=== PATIENT | male | born 1965 | race Caucasian/White ===

== ENCOUNTER 2020-10-28 17:23 | Observation (INO) ==
[2020-10-28] MEDS ORDERED: MORPHINE SULFATE 4 MG/ML SYRG IV ONE (17:39)
[2020-10-28] MEDS: NORMAL SALINE 1,000 ML IV PRN (17:54)
--- NOTE | 2020-10-28 18:14 | ERNOTE ---
Integumentary HPI - Narrative Date of Service: 10/28/20 - General Presenting Symptoms: abscess Time Seen by Provider: 10/28/20 17:26 Source: patient Exam Limitations: no limitations - Immun/Allergies/Home Medications Immunizations: IMMUNIZATION HX Immunizations Up to Date No History of Influenza Vaccine No Hx Pneumococcal Vaccination No Allergies/Adverse Reactions: Allergies Allergy/AdvReac Type Severity Reaction Status Date / Time diphenhydramine Allergy Hives Verified 10/28/20 17:40 [From Benadryl] Home Medications: HOME MEDICATIONS Ibuprofen 800 mg PO prn PRN 10/28/20 [Last Taken Unknown] - Pain Pain Score: 9 - History of Present Illness Narrative: The patient is a 55 year old male who presents via POV for right groin abscess which has been present for 3 days. There are associated symptoms of pain, chills and fatigue. The patient reports pain to right groin and pubis, 9/10. There are no alleviating factors. There are aggravating factors of position and pressure to area. Previous treatments have included: none. The past medical history includes: pre-diabetes. The social history is positive for current tobacco use. The patient has had no known ill contacts. Patient states that he had a small pustule for over a week to right groin. Patient states that 3-4 days ago he decided "to get aggressive with it" and attempt to "pop" area. Patient states that he wasn't able to get return of drainage and then area began to get larger over the past few days with increased pain. Review of Systems - Review of Systems Constitutional: Present: chills, fatigue. Absent: fever EYE: Present: no symptoms reported ENT: Present: no symptoms reported. Absent: ear pain, nasal drainage, sore throat Respiratory: Present: no symptoms reported. Absent: shortness of breath, cough Cardiology: Present: no symptoms reported. Absent: chest pain Gastrointestinal/Abdominal: Present: abdominal pain. Absent: nausea, vomiting, diarrhea Genitourinary: Present: other - swelling and pain with pustule to right groin and pubis. Absent: dysuria, decreased urinary output, discharge Musculoskeletal: Present: no symptoms reported Skin: Present: lesions All Other Systems: All systems neg except as marked Medical History (Last Reviewed 10/28/20 @ 18:06 by KOKO Harrell) Pre-diabetes Surgical History: Surgical History (Last Reviewed 10/28/20 @ 18:06 by KOKO Harrell) Amputation toe Family History: Family History (Last Reviewed 10/28/20 @ 18:06 by KOKO Harrell) Other No pertinent family history Social History: (Last Reviewed 10/28/20 @ 18:06 by KOKO Harrell) Tobacco: Smoking Status: Current every day smoker Smoking cigarettes per day: 40 Alcohol: alcohol intake: current alcohol intake frequency: a few times a week Substance Use: substance use type: does not use Physical Exam - Physical Exam General Appearance: Present: wd/wn, alert, moderate distress Head Exam: Present: normal inspection, no evidence of injury Eye Exam: Normal inspection: bilateral Neck: Present: normal inspection Respiratory: Present: no respiratory distress, normal breath sounds, no accessory muscle use, lungs clear Cardiovascular/Chest: Present: no murmur, tachycardia Gastrointestinal/Abdominal: Present: normal bowel sounds, nondistended, soft, no organomegaly, tenderness - suprapubic Male Genitals Exam: Present: normal genitalia, lesions - large abscess with pustule noted to right groin with indurated area extending to right pubic and slight erythema, scrotum tenderness (R), other - lymphadenopathy to right groin. Absent: scrotum tenderness (L), urethral discharge Extremity Exam: Present: no edema Neurological Exam: Present: alert, oriented, normal mood/affect, no motor/sensory deficits Skin Exam: Present: normal color, warm/dry Progress - Date and Time Seen: Date and Time: 10/28/20 19:32 Due to extension of induration to right pubis and scotum CT obtained to evaluate for extension of abscess. Review of CT results discussed with patient. Consult with to discuss plan of care. Agrees with plan for admission with IV antibiotic and states will consult with general surgery in am for consult. This plan was discussed with patient and verbalizes understanding. 10/28/20 19:45 CT noted 2.2cm abscess to right groin fold at base of scrotum. Needle aspiration of abscess, 2ml of purulent fluid removed from fluctuant area and sent for culture. Will start patient on Clindamycin pending culture results. 10/28/20 20:49 Discussed plan of care with patient and agrees with admission. Patient states that pain is improved after medication administration. Patient requesting Nicotine but can not tolerate patch due to adhesive allergy, no gum available. - Results and Orders Patient's Lab Results:: I have reviewed the patient's lab results. - Vital Signs Patient's Vital Signs:: I have reviewed the patient's vital signs. Vital Signs: Vital Signs 10/28/20 17:36 10/28/20 17:59 Temperature 36.7 C Pulse Rate 124 H 111 H Respiratory Rate 20 15 Blood Pressure 130/86 160/88 H O2 Sat by Pulse Oximetry 97 95 - CT/Ultrasound CT/Ultrasound Narrative: IMPRESSION:Cellulitis in the soft tissues of the right groin with a 2.2 cm in maximum dimension early abscess near the base of the scrotum at the junction of the right inguinal crease and right gluteal cleft inferior gluteal fold. Electronically signed by Seun Jacobo MD. - Progress/Reassessment Chief Complaint: Abscess Progress:: Improved Departure Clinical Impression: Abscess or cellulitis of groin - Departure Disposition: Still a patient Condition: Stable
[2020-10-28 18:20] LABS: Hematocrit 46.1 % (42.0-52.0); Hemoglobin 15.8 gm/dL (13.5-18.0); Mean Cell Volume 92.2 fl (78-100); Mean Corpuscular Hemoglobin 31.6 pg (27-31); Mean Corpuscular Hgb Conc 34.3 g/dl (32-36); Mean Platelet Volume 9.6 fl (8-11.3); Neutrophil # 16.7 K/mm3 (1.3-6.0); Neutrophil % 78.8 % (42-75.0); Platelet Count 209 K/mm3 (150-450); White Blood Count 21.2 K/mm3 (4.0-10.5)
[2020-10-28 18:33] LABS: Albumin * 3.4 gm/dl (3.4-5.0); Anion Gap 15.4 mmol/L (6.8-13.8); BUN/Creatinine Ratio 12.7 (9.0-21.6); Bilirubin, Total 1.3 mg/dL (0.0-1.1); Ca. Corrected For Albumin 9.1 mg/dL (8.4-10.2); Calcium * 8.9 mg/dL (7.9-10.9); Carbon Dioxide 22.2 mmol/L (24-32.6); Potassium 3.6 mmol/L (3.4-4.6); Total Protein 7.7 gm/dL (6.2-8.2)
[2020-10-28] MEDS ORDERED: HYDROmorphone HCL 1 MG/ML DISP.SYRIN IV ONE (18:50)
[2020-10-28] MEDS ORDERED: CLINDAMYCIN PHOSPHATE 600 MG in DEXTROSE 5 % IN WATER 100 ML IV ONE ×2 (19:27)
[2020-10-28] MEDS ORDERED: NORMAL SALINE 1,000 ML IV PRN (20:48)
[2020-10-28] MEDS: CLINDAMYCIN IN 0.9 % SOD CHLOR 600 MG/50 ML BAG IV SCH (21:22)
[2020-10-28] MEDS: HYDROmorphone HCL 1 MG/ML DISP.SYRIN IV PRN ×2 (21:47→23:53)
[2020-10-29] MEDS: HYDROmorphone HCL 1 MG/ML DISP.SYRIN IV PRN ×5 (01:53→13:34)
[2020-10-29] MEDS: CLINDAMYCIN IN 0.9 % SOD CHLOR 600 MG/50 ML BAG IV SCH ×2 (04:51→13:35)
[2020-10-29 06:49] LABS: Hematocrit 43.7 % (42.0-52.0); Hemoglobin 14.8 gm/dL (13.5-18.0); Mean Cell Volume 93.4 fl (78-100); Mean Corpuscular Hemoglobin 31.6 pg (27-31); Mean Corpuscular Hgb Conc 33.9 g/dl (32-36); Mean Platelet Volume 9.3 fl (8-11.3); Platelet Count 207 K/mm3 (150-450); Red Blood Count 4.68 M/mm3 (4.7-6.0); Red Cell Distribution Width 11.9 % (11.5-14.0); White Blood Count 20.4 K/mm3 (4.0-10.5)
[2020-10-29 06:51] LABS: Total Cells Counted 100
[2020-10-29 07:18] LABS: Atypical (Reactive) Lymph 2 % (0-2); Band 4 % (0-2.0); Eosinophil 1 % (0-3); Lymphocyte 11 % (20-51); Monocyte 8 % (0-9); Neutrophil 74 % (42-75); Neutrophil # 15.1 K/mm3 (1.3-6.0); Platelet Estimate Normal (NORMAL)
[2020-10-29 07:21] LABS: RBC Morphology Normal (NORMAL)
[2020-10-29] MEDS: INSULIN LISPRO 100 UNITS/ML VIAL SC SCH ×3 (07:43→18:11)
--- NOTE | 2020-10-29 08:59 | HP ---
Chief Complaint - Chief Complaint Date of Service: 10/29/20 Time of Service: 08:59 Chief Complaint: Abscess, cellulitis, groin pain History of Present Illness: 55-year-old male with a history of diabetes, currently untreated presented to the ER for right groin pain and abscess that started roughly 3 days ago. Patient states that he started having fever and chills yesterday which is why came to the ER. In ER he was found to have a white count of 21.2 with a left shift at 78.8. Lactic acid was normal. CHEM panel was fairly unremarkable aside from elevated sugar at 302 as well as a CRP of 19. The rest of his lab work was unremarkable. CT scan of his pelvis showed cellulitis in the soft tissue of his right groin with a 2.2 cm dimension early abscess in the base of the scrotum of the junction of the right inguinal crease and right gluteal cleft. Patient was admitted for IV antibiotics and surgical consult. Consult order placed by the ER. Patient was brought to the floor on clindamycin IV after receiving 1 bag of normal saline bolus prior to admission. Patient currently n.p.o. in case surgical procedure needed. Medical History (Last Reviewed 10/28/20 @ 18:06 by KOKO Harrell) Pre-diabetes Surgical History: Surgical History (Last Reviewed 10/28/20 @ 18:06 by KOKO Harrell) Amputation toe Family History: Family History (Last Reviewed 10/28/20 @ 18:06 by KOKO Harrell) Other No pertinent family history Social History: (Last Reviewed 10/28/20 @ 18:06 by KOKO Harrell) Tobacco: Smoking Status: Current every day smoker Smoking cigarettes per day: 40 Alcohol: alcohol intake: current alcohol intake frequency: a few times a week Substance Use: substance use type: does not use Review Of Systems (GEN) - Review of Systems Generalized/Overall Review: Present: Chills, Fever EENTM: Present: No Symptoms Reported Respiratory: Present: No Symptoms Reported Cardiac: Present: No Symptoms Reported Abdominal: Present: Nausea, Vomiting Genitourinary: Present: No Symptoms Reported Musculoskeletal: Present: No Symptoms Reported Neurological: Present: No Symptoms Reported Skin: Present: Lesions - right groin abscess with surrounding redness Endocrine: Absent: Increased Thirst Immunizations: IMMUNIZATION HX Immunizations Up to Date No History of Influenza Vaccine No Hx Pneumococcal Vaccination No Allergies/Adverse Reactions: Allergies Allergy/AdvReac Type Severity Reaction Status Date / Time diphenhydramine Allergy Hives Verified 10/28/20 17:40 [From Benadryl] Home Medications: HOME MEDICATIONS Ibuprofen 800 mg PO prn PRN 10/28/20 [Last Taken Unknown] Exam - Exam Vital Signs: Vital Signs - Last Taken Temp 37.3 C 10/29/20 06:40 Pulse 110 H 10/29/20 06:40 Resp 16 10/29/20 06:40 BP 182/93 H 10/29/20 06:45 Pulse Ox 95 10/29/20 06:40 Constitutional: Present: Alert, Oriented x3, Well developed, Mild distress - groin pain/infection ENT Exam: Present: hearing grossly normal. Absent: nasal congestion, nasal drainage Eye Exam: bilateral eye: normal inspection, EOMI Neck: Present: non-tender, supple Back Exam: Present: no CVA tenderness Respiratory: Present: lungs clear, normal breath sounds Cardiovascular/Chest: Present: no murmur, tachycardia Abdomen: Present: soft, nontender, nondistended Skin Exam: Present: other - 2 cm abscess right groin crease next to scrotum, surrounding cellulitic infection with induration Neurologic: Present: alert, normal mood/affect, oriented x 3 Appearance: Present: appropriate appearance, appropriate insight Eye contact: Present: cooperative, good eye contact Thoughts: Present: normal thought pattern, normal mood /affect Diagnostic Studies: Abnormal Lab Results 10/28/20 10/28/20 10/29/20 Range/Units 18:08 18:08 06:40 WBC 21.2 H 20.4 H (4.0-10.5) K/mm3 RBC 4.68 L (4.7-6.0) M/mm3 MCH 31.6 H 31.6 H (27-31) pg Immature Gran # (Auto) 0.09 H (0.000-0.0310) K/mm3 Neutrophils % 78.8 H (42-75.0) % Band Neuts % (Manual) 4 H (0-2.0) % Lymphocytes % 8.7 L (20-51) % Lymphocytes % (Manual) 11 L (20-51) % Monocytes % 10.3 H (0.0-9) % Neutrophils # 16.7 H (1.3-6.0) K/mm3 Neutrophils # (Manual) 15.1 H (1.3-6.0) K/mm3 Monocytes # 2.2 H (0.0-1.0) k/mm3 Monocytes # (Manual) 1.6 H (0.0-1.0) k/mm3 Carbon Dioxide 22.2 L (24-32.6) mmol/L Anion Gap 15.4 H (6.8-13.8) mmol/L Random Glucose 302 H (70-110) mg/dL Total Bilirubin 1.3 H (0.0-1.1) mg/dL C-Reactive Prot, Quant 19.0 H (0.0-0.9) mg/dL Microbiology 10/28/20 19:35 Abscess Culture - Preliminary Other - Right No Growth Laboratory Results WBC 20.4 K/mm3 (4.0-10.5) H 10/29/20 06:40 RBC 4.68 M/mm3 (4.7-6.0) L 10/29/20 06:40 Hgb 14.8 gm/dL (13.5-18.0) 10/29/20 06:40 Hct 43.7 % (42.0-52.0) 10/29/20 06:40 MCV 93.4 fl (78-100) 10/29/20 06:40 MCH 31.6 pg (27-31) H 10/29/20 06:40 MCHC 33.9 g/dl (32-36) 10/29/20 06:40 RDW 11.9 % (11.5-14.0) 10/29/20 06:40 Plt Count 207 K/mm3 (150-450) 10/29/20 06:40 MPV 9.3 fl (8-11.3) 10/29/20 06:40 Immature Gran % (Auto) [employer] 10/29/20 06:40 Immature Gran # (Auto) [employer] 10/29/20 06:40 Neutrophils % [employer] 10/29/20 06:40 Neutrophils % (Manual) 74 % (42-75) 10/29/20 06:40 Band Neuts % (Manual) 4 % (0-2.0) H 10/29/20 06:40 Lymphocytes % [employer] 10/29/20 06:40 Lymphocytes % (Manual) 11 % (20-51) L 10/29/20 06:40 Monocytes % [employer] 10/29/20 06:40 Monocytes % (Manual) 8 % (0-9) 10/29/20 06:40 Eosinophils % [employer] 10/29/20 06:40 Eosinophils % (Manual) 1 % (0-3) 10/29/20 06:40 Basophils % [employer] 10/29/20 06:40 Basophils % (Manual) Cancelled 10/28/20 18:08 Nucleated RBC % [employer] 10/29/20 06:40 Immature Granulocytes Cancelled 10/28/20 18:08 Neutrophils # [employer] 10/29/20 06:40 Neutrophils # (Manual) 15.1 K/mm3 (1.3-6.0) H 10/29/20 06:40 Lymphocytes # [employer] 10/29/20 06:40 Lymphocytes # (Manual) 2.2 k/mm3 (1.5-3.5) 10/29/20 06:40 Monocytes # [employer] 10/29/20 06:40 Monocytes # (Manual) 1.6 k/mm3 (0.0-1.0) H 10/29/20 06:40 Eosinophils # [employer] 10/29/20 06:40 Eosinophils # (Manual) 0.2 k/mm3 (0.0-0.7) 10/29/20 06:40 Basophils # (Manual) Cancelled 10/28/20 18:08 Absolute Basophils [employer] 10/29/20 06:40 Nucleated RBCs Cancelled 10/28/20 18:08 Differential Comment Cancelled 10/28/20 18:08 Hypersegmented Polys Cancelled 10/28/20 18:08 Atypic/Reactive Lymphs 2 % (0-2) 10/29/20 06:40 Smudge Cells Cancelled 10/28/20 18:08 Other Cell Type Cancelled 10/28/20 18:08 Toxic Granulation Cancelled 10/28/20 18:08 Toxic Vacuolation Cancelled 10/28/20 18:08 Dohle Bodies Cancelled 10/28/20 18:08 Platelet Estimate Normal (NORMAL) 10/29/20 06:40 Giant Platelets Cancelled 10/28/20 18:08 RBC Morphology Normal (NORMAL) 10/29/20 06:40 Polychromasia Cancelled 10/28/20 18:08 Hypochromasia Cancelled 10/28/20 18:08 Poikilocytosis Cancelled 10/28/20 18:08 Basophilic Stippling Cancelled 10/28/20 18:08 Anisocytosis Cancelled 10/28/20 18:08 Microcytosis Cancelled 10/28/20 18:08 Macrocytosis Cancelled 10/28/20 18:08 Spherocytes Cancelled 10/28/20 18:08 Sickle Cells Cancelled 10/28/20 18:08 Target Cells Cancelled 10/28/20 18:08 Tear Drop Cells Cancelled 10/28/20 18:08 Ovalocytes Cancelled 10/28/20 18:08 Stomatocytes Cancelled 10/28/20 18:08 Moran-Potosi Bodies Cancelled 10/28/20 18:08 Makenna Cells Cancelled 10/28/20 18:08 Elliptocytes Cancelled 10/28/20 18:08 Rouleaux Cancelled 10/28/20 18:08 Schistocytes Cancelled 10/28/20 18:08 Morphology Comment Cancelled 10/28/20 18:08 Sodium 132 mmol/L (132-142) 10/28/20 18:08 Plasma Sodium 135 mmol/L (130-142) 10/28/20 18:08 Potassium 3.6 mmol/L (3.4-4.6) 10/28/20 18:08 Chloride 98 mmol/L (97-106) 10/28/20 18:08 Carbon Dioxide 22.2 mmol/L (24-32.6) L 10/28/20 18:08 Anion Gap 15.4 mmol/L (6.8-13.8) H 10/28/20 18:08 BUN 15 mg/dL (6-23) 10/28/20 18:08 Creatinine 1.18 mg/dL (0.4-1.4) 10/28/20 18:08 Est GFR (Non-Af Amer) 68 mL/min (60-130) 10/28/20 18:08 BUN/Creatinine Ratio 12.7 (9.0-21.6) 10/28/20 18:08 Random Glucose 302 mg/dL (70-110) H 10/28/20 18:08 Lactic Acid, Venous 1.4 mmol/L (0.4-2.0) 10/28/20 18:08 Calcium 8.9 mg/dL (7.9-10.9) 10/28/20 18:08 Calcium Adj for Albumin 9.1 mg/dL (8.4-10.2) 10/28/20 18:08 Total Bilirubin 1.3 mg/dL (0.0-1.1) H 10/28/20 18:08 AST 11 U/L (0-48) 10/28/20 18:08 ALT 19 U/L (19-67) 10/28/20 18:08 Alkaline Phosphatase 89 U/L (50-170) 10/28/20 18:08 C-Reactive Prot, Quant 19.0 mg/dL (0.0-0.9) H 10/28/20 18:08 Total Protein 7.7 gm/dL (6.2-8.2) 10/28/20 18:08 Albumin 3.4 gm/dl (3.4-5.0) 10/28/20 18:08 SARS-CoV-2 (PCR) Not detected (NotDetected) 10/28/20 19:30 Assessment/Plan - Narrative Narrative: 55-year-old male admitted for right groin abscess, started on clindamycin IV. Patient's white count elevated from infection. Surgical consult placed by ER. Will continue IV antibiotics, patient is n.p.o. currently. Will reach out to general surgery as it is very available to discuss the case. Repeat CBC in the morning. Patient has low-dose hydromorphone ordered for pain control from the ER, will continue this. Patient blood sugar is elevated. Currently untreated diabetes. Will start sliding scale insulin and blood glucose monitoring before meals at bedtime. Tylenol ordered for fevers or discomfort. We will continue monitor vitals. SCDs to be worn while in bed for DVT prophylaxis. Nurse to call with questions or concerns. - Assessment/Plan (1) Abscess or cellulitis of groin Problem: Acute (2) Diabetes Problem: Acute (3) Elevated blood pressure reading without diagnosis of hypertension Problem: Acute
[2020-10-29] MEDS: NORMAL SALINE 1,000 ML IV PRN (10:57)
[2020-10-29] MEDS ORDERED: ACETAMINOPHEN 500 MG TABLET PO PRN (14:14)
[2020-10-29] MEDS ORDERED: hydrALAZINE HCL 10 MG TABLET PO ONE (14:45)
--- NOTE | 2020-10-29 16:33 | ANES ---
Anesthesia Pre Procedure Eval Vitals/Labs: Last Vital Signs Temp 38.3 C H 10/29/20 13:52 Pulse 100 10/29/20 14:35 Resp 26 H 10/29/20 13:52 BP 172/75 H 10/29/20 14:35 Pulse Ox 91 L 10/29/20 13:52 HOME MEDICATIONS Ibuprofen 800 mg PO prn PRN 10/28/20 [Last Taken Unknown] Allergies/Adverse Reactions: Allergies Allergy/AdvReac Type Severity Reaction Status Date / Time diphenhydramine Allergy Hives Verified 10/28/20 17:40 [From Benadryl] - Planned Procedure Planned Procedure: CELLULITIS AND ABSCESS TO R GROIN Medication List Reviewed:: Yes Allergies Verified: Yes Medical History (Last Reviewed 10/29/20 @ 16:29 by Arthur Garcia CRNA) Pre-diabetes Surgical History (Last Reviewed 10/29/20 @ 16:29 by Arthur Garcia CRNA) Amputation toe Family History (Last Reviewed 10/29/20 @ 16:29 by Arthur Garcia CRNA) Other No pertinent family history - Family Anesthesia History Family History:: no untoward family reactions to anesthesia, no familial bleeding tendencies, no family history of clotting disorders, no family history of premature - Airway/Neck/Teeth Within Normal Limits:: Yes Teeth Condition: missing, poor condition - upper molar loose Neck Exam: full range of motion Mallampatti Score: 2 Thyromental (T-M) distance: > 6 cm Mandibulo Hyoid distance: > 3 cm - Respiratory Respiratory Physical: decreased breath sounds, rhonchi Smoking Status: Current every day smoker Discussed smoking cessation including day of surgery: Yes - Last ciggarrette 2 days ago Sleep Apnea currently treated: No Sleep Apnea by current assessment: No - Cardiovascular Tolerate Activity: Fair Heart Sounds: S1 & S2, Regular - Gastrointestinal NPO since: 0 - Anesthesia Assessment and Plan ASA Class: PS, II Anesthesia Type Plan: General LMA
--- NOTE | 2020-10-29 16:37 | CONS ---
[facility] - General Date of Service: 10/29/20 Narrative: He presented to the emergency room last night with right groin swelling. He was found to have an elevated white blood cell count and CT scan evidence of an early abscess in the right groin. He was started on IV clindamycin Source: patient, RN/MD, RN notes reviewed Exam Limitations: no limitations - History of Present Illness Initial Comments: He states he has had "cysts" in the same area that he has always been "able to pop". This time however the area got "the size of a golf ball or baseball" and he tried to "get aggressive with it" but did not get any pus out. States the area hurts so bad that he cannot sit down to move his bowels or urinate. Usually he moves his bowels twice a day. He did go yesterday morning but has not moved his bowels since. Timing/Duration: other - Apparently this started 2 weeks ago Severity: moderate Modifying Factors - (Worsens): Reports: movement Modifying Factors - (Improves): Reports: immobilization Associated Symptoms: other - His main complaint is pain. Apparently no fever or chills Allergies/Adverse Reactions: Allergies diphenhydramine [From Benadryl] Allergy (Verified 10/28/20 17:40) Hives Home Medications: Home Medications Medication Instructions Recorded Last Taken Ibuprofen 800 mg PO prn PRN 10/28/20 Unknown Medications - Medications Current Medications: Current Medications Acetaminophen (Acetaminophen 500 Mg Tablet) 1,000 mg PO Q8H PRN PRN Reason: Mild pain (pain scale 1-3) Stop: 11/28/20 14:15 Last Admin: 10/29/20 14:35 Dose: 1,000 mg Documented by: Hydromorphone HCl (Hydromorphone Hcl 1 Mg/Ml Disp.Syrin) 0.5 mg IV Q2H PRN PRN Reason: Pain Stop: 11/27/20 20:49 Last Admin: 10/29/20 13:34 Dose: 0.5 mg Documented by: Clindamycin/Sodium Chloride (Cleocin) 600 mg in 50 mls @ 50 mls/hr IV Q8H DEANNA Stop: 11/27/20 21:01 Last Admin: 10/29/20 13:35 Dose: 50 mls/hr Documented by: Sodium Chloride (Sodium Chloride 0.9%) 1,000 mls @ 125 mls/hr IV .Q8H PRN PRN Reason: HYDRATION Stop: 11/27/20 20:49 Last Infusion: 10/29/20 11:10 Dose: Infused Documented by: Insulin Human Lispro (Insulin Lispro 100 Units/Ml Vial) 0 units SC GERA HUERTA; Protocol Stop: 11/28/20 07:01 Last Admin: 10/29/20 11:37 Dose: 4 units Documented by: Review of Systems - Review of Systems Generalized/Overall Review: Absent: Chills, Fever EENTM: Present: No Symptoms Reported Respiratory: Absent: Cough, Shortness of Breath Cardiac: Absent: Chest Pain, Palpitations Abdominal: Present: Other - He does not generally have problems with heartburn. And until recently his bowels were regular.. Absent: Nausea, Vomiting Genitourinary: Present: Nocturia - Generally gets up once or twice, Other - Pain and swelling in the right scrotum and the right groin. Absent: Burning Musculoskeletal: Present: No Symptoms Reported, Other - Absent right great toe from a lawnmower accident as a child Neurological: Present: No Symptoms Reported, Other - He specifically denies numbness in his feet Skin: Present: No Symptoms Reported Endocrine: Present: No Symptoms Reported Physical Examination - Exam Vital Signs: Vital Signs - Last Taken Temp 38.3 C H 10/29/20 13:52 Pulse 100 10/29/20 14:35 Resp 26 H 10/29/20 13:52 BP 172/75 H 10/29/20 14:35 Pulse Ox 91 L 10/29/20 13:52 O2 Oxygen Delivery Method Room Air Constitutional: Present: Alert, Oriented x3, Cooperative, Well developed, Well nourished, No distress - He complains of discomfort in the right groin however his attention is equally divided between watching the TV and my questions ENT Exam: Present: normal ENT inspection, other - Very poor dentition Neck: Present: full range of motion, normal inspection Respiratory: Present: lungs clear, no respiratory distress Cardiovascular/Chest: Present: regular rate, rhythm, no murmur, other - Very distant heart sounds Abdomen: Present: Normal bowel sounds, soft, nontender, other - There is induration in the right groin /Rectal: Present: Other - He has an abscess in the medial thigh at the groin crease Extremity: Present: normal range of motion, other - Absent right great toe Skin Exam: Present: normal color, warm/dry Neurologic: Present: healthcare specialist II-XII nml as tested, normal cerebellar test, alert, normal mood/affect Appearance: Present: no memory impairment Eye contact: Present: cooperative, normal speech Thoughts: Present: normal thought pattern - Results and Findings: Lab/Microbiology results last 24 hrs: Abnormal/Pending Laboratory Last 24 HRS 10/29/20 10/28/20 10/28/20 06:40 18:08 18:08 WBC 20.4 H 21.2 H RBC 4.68 L MCH 31.6 H 31.6 H Immature Gran # (Auto) 0.09 H Neutrophils % 78.8 H Band Neuts % (Manual) 4 H Lymphocytes % 8.7 L Lymphocytes % (Manual) 11 L Monocytes % 10.3 H Neutrophils # 16.7 H Neutrophils # (Manual) 15.1 H Monocytes # 2.2 H Monocytes # (Manual) 1.6 H Carbon Dioxide 22.2 L Anion Gap 15.4 H Random Glucose 302 H Total Bilirubin 1.3 H C-Reactive Prot, Quant 19.0 H Culture 10/28/20 19:35 Abscess Culture - Preliminary Other - Right No Growth - Assessments/Findings (1) Abscess or cellulitis of groin Diagnosis(s): The swelling in the groin appears to be cellulitis. There is an abscess in the thigh crease on the right. This is amenable to incision and drainage. I explained what was involved with incision and drainage and possible placement of a wick. This can be performed with MAC/local anesthesia. He has been n.p.o. for a suitable period of time. After interactive discussion his questions were answered to his apparent satisfaction and he has given informed consent for incision and drainage of right groin abscess Problem: Acute (2) Diabetes Problem: Suspected
[2020-10-29] MEDS ORDERED: BUPIVACAINE HCL/EPINEPHRINE 50 ML VIAL ONE (16:40)
[2020-10-29] MEDS ORDERED: LIDOCAINE HCL 20 ML VIAL ONE (16:41)
[2020-10-29] MEDS ORDERED: fentaNYL CITRATE/PF 50 MCG/ML AMPUL ONE (16:41)
[2020-10-29] MEDS ORDERED: KETOROLAC TROMETHAMINE 30 MG/ML VIAL ONE (16:42)
[2020-10-29] MEDS ORDERED: PROPOFOL VIAL IV ONE (16:42)
[2020-10-29] MEDS ORDERED: MIDAZOLAM HCL/PF 1 MG/ML VIAL ONE (16:42)
[2020-10-29] MEDS ORDERED: BUPIVACAINE HCL/EPINEPHRINE 50 ML VIAL IJ ONE (17:21)
--- NOTE | 2020-10-29 17:43 | ANES ---
Post Anesthesia Discharge - Transfer of Care Transfer of Care handoff given to nurse: Yes - Discharge to [facility] Discharge to [facility]-no complications/pt stable: Yes - Comfortable in room.
--- NOTE | 2020-10-29 17:44 | OR ---
Operative Report - Dictated Report Narrative: OPERATIVE REPORT DATE OF OPERATION: 10/28/2020 PREOPERATIVE DIAGNOSIS: Abscess right groin POSTOPERATIVE DIAGNOSIS: Same (2 x 3 cm abscess in the groin crease right inner thigh) OPERATION: Incision and drainage abscess right groin SURGEON: Francesco Mcfadden MD ANESTHESIA: MAC/local Arthur Garcia CRNA INDICATIONS FOR PROCEDURE: The patient is a 55-year-old male who presented to the emergency room last night with an abscess in the right groin and cellulitis. He has had multiple "cysts" in the area which have popped on their own before. FINDINGS: 2 x 3 cm abscess NARRATIVE OF PROCEDURE: The patient was identified preoperatively, the surgical site was identified, and prior to the administration of anesthetic a multidisciplinary timeout was observed. After the administration of intravenous sedation the patient was placed in the frog-leg position and the perineum and right upper thigh prepped with Betadine solution and isolated with 4 sterile towels. The area around the abscess was infiltrated with 0.5% Marcaine with epinephrine. A cruciate 1 cm skin incision was made over the abscess cavity. The cavity was then explored with a hemostat and all loculations were lysed. The anterior the cavity was then treated with Betadine swabs. The cavity was then nonselectively debrided with gauze until all nonvitalized tissue was removed. The area was inspected for hemostasis which appeared complete. Additional 0.5% Marcaine with epinephrine was injected. The cavity was then packed with half-inch iodoform gauze and dressed with a folded 4 x 4, Mepilex border, and Medipore tape. The operative procedure was terminated at this point. The patient tolerated the anesthetic and procedure well without complication. There was no measurable blood loss. All counts were correct. No specimens were submitted. The patient was transferred back to the floor awake and in stable condition. Plan at this time is to discharge the patient on Bactrim p.o. twice daily with a follow-up in the office for packing change tomorrow. Reviewed and electronically signed
--- NOTE | 2020-10-29 18:21 | ANES ---
Post Anesthesia Assessment - Vital Signs Vitals: Last Vital Signs Temp 36.6 C 10/29/20 17:45 Pulse 90 10/29/20 18:11 Resp 16 10/29/20 18:11 BP 128/76 10/29/20 18:11 Pulse Ox 90 L 10/29/20 18:11 Airway Patency: Normal - Mental Status Level Of Consciousness: Awake, Alert, Appropriate - Pain Level Pain Score: 0 - N/V Assessment Nausea/Vomiting Presence: None Dehydration:: No
--- NOTE | 2020-10-29 18:56 | DS ---
(1) Abscess or cellulitis of groin Problem: Acute (2) Diabetes Problem: Suspected (3) Elevated blood pressure reading without diagnosis of hypertension Problem: Acute Date of Discharge:: 10/29/20 Hospital Course: 55 year old male presented to the hospital with abscess in the right groin that started about 3 days prior. He started getting chills and felt feverish. He had an elevated wbc at 21. He was started on clindamycin and admitted to be evaluated He did have a fever and blood cultures were redrawn. Initial cultures negative. Will montior lab results and notify patient once they return. Our general surgeon evaluated him and took him back for incision and drainage of the abscess. He was discharge the day after admission with follow up with Dr. Mcfadden tomorrow for wound care. He will follow up with his PCP in 1 week. While here he had elevated sugars which were controlled with sliding scale insulin. He will need to address this with his PCP at his follow up visit as he does have diabetes and will need to be on medication to manage this. Procedures Performed: see notes below - I&D right groin abscess Results and Findings: Pending Mircobiology Results 10/28/20 18:08 Blood Blood Culture - Preliminary NO GROWTH 24 HOURS 10/28/20 19:35 Other - Right Abscess Culture - Preliminary No Growth Lab Pending Results 10/28/20 18:08: WBC 21.2 H, RBC 5.00, Hgb 15.8, Hct 46.1, MCV 92.2, MCH 31.6 H, MCHC 34.3, RDW 12.0, Plt Count 209, MPV 9.6, Immature Gran % (Auto) 0.40, Immature Gran # (Auto) 0.09 H, Neutrophils % 78.8 H, Neutrophils % (Manual) Cancelled, Band Neuts % (Manual) Cancelled, Lymphocytes % 8.7 L, Lymphocytes % (Manual) Cancelled, Monocytes % 10.3 H, Monocytes % (Manual) Cancelled, Eosinophils % 1.5, Eosinophils % (Manual) Cancelled, Basophils % 0.3, Basophils % (Manual) Cancelled, Nucleated RBC % 0.0, Immature Granulocytes Cancelled, Neutrophils # 16.7 H, Neutrophils # (Manual) Cancelled, Lymphocytes # 1.84, Lymphocytes # (Manual) Cancelled, Monocytes # 2.2 H, Monocytes # (Manual) Cancelled, Eosinophils # 0.3, Eosinophils # (Manual) Cancelled, Basophils # (Manual) Cancelled, Absolute Basophils 0.1, Nucleated RBCs Cancelled, Differential Comment Cancelled, Hypersegmented Polys Cancelled, Atypic/Reactive Lymphs Cancelled, Smudge Cells Cancelled, Other Cell Type Cancelled, Toxic Granulation Cancelled, Toxic Vacuolation Cancelled, Dohle Bodies Cancelled, Platelet Estimate Cancelled, Giant Platelets Cancelled, RBC Morphology Cancelled, Polychromasia Cancelled, Hypochromasia Cancelled, Poikilocytosis Cancelled, Basophilic Stippling Cancelled, Anisocytosis Cancelled, Microcytosis Cancelled, Macrocytosis Cancelled, Spherocytes Cancelled, Sickle Cells Cancelled, Target Cells Cancelled, Tear Drop Cells Cancelled, Ovalocytes Cancelled, Stomatocytes Cancelled, [place] Bodies Cancelled, [place] Cells Ca ncelled, Elliptocytes Cancelled, Rouleaux Cancelled, Schistocytes Cancelled, Morphology Comment Cancelled 10/28/20 18:08: Sodium 132, Plasma Sodium 135, Potassium 3.6, Chloride 98, Carbon Dioxide 22.2 L, Anion Gap 15.4 H, BUN 15, Creatinine 1.18, Est GFR (Non- Af Amer) 68, BUN/Creatinine Ratio 12.7, Random Glucose 302 H, Calcium 8.9, Calcium Adj for Albumin 9.1, Total Bilirubin 1.3 H, AST 11, ALT 19, Alkaline Phosphatase 89, C-Reactive Prot, Quant 19.0 H, Total Protein 7.7, Albumin 3.4 10/28/20 18:08: Lactic Acid, Venous 1.4 10/28/20 19:30: SARS-CoV-2 (PCR) Not detected 10/29/20 06:40: WBC 20.4 H, RBC 4.68 L, Hgb 14.8, Hct 43.7, MCV 93.4, MCH 31.6 H, MCHC 33.9, RDW 11.9, Plt Count 207, MPV 9.3, Immature Gran % (Auto) Adjunct Teacher, Immature Gran # (Auto) Adjunct Teacher, Neutrophils % Adjunct Teacher, Neutrophils % (Manual) 74, Band Neuts % (Manual) 4 H, Lymphocytes % Adjunct Teacher, Lymphocytes % (Manual) 11 L, Monocytes % Adjunct Teacher, Monocytes % (Manual) 8, Eosinophils % Adjunct Teacher, Eosinophils % (Manual) 1, Basophils % Adjunct Teacher, Nucleated RBC % Adjunct Teacher, Neutrophils # Adjunct Teacher, Neutrophils # (Manual) 15.1 H, Lymphocytes # Adjunct Teacher, Lymphocytes # (Manual) 2.2, Monocytes # Adjunct Teacher, Monocytes # (Manual) 1.6 H, Eosinophils # Adjunct Teacher, Eosinophils # (Manual) 0.2, Absolute Basophils Adjunct Teacher, Atypic/Reactive Lymphs 2, Platelet Estimate Normal, RBC Morphology Normal Discharge Location: Home Disposition: Home self-care Condition: Stable Discharge Activity: Activity as tolerated Discharge Diet: Consistent carbs Referrals: Sp Bellamy DO [Staff Physician] - One Week Prescriptions (Any new or edited meds): Sulfamethoxazole/Trimethoprim [Bactrim] 1 tab PO BID #20 tab Transmission Status: Received by [facility] #[id number] Complete Home Medications List: Complete Home Medication List: Ibuprofen 800 mg PO prn PRN 10/28/20 Sulfamethoxazole/Trimethoprim [Bactrim] 1 tab PO BID #20 tab 10/29/20
[2020-10-29 19:09] VITALS: BP 146/76
== END 2020-10-29 19:28 | disposition home or self-care (01) ==
LOC: ER 17:23 → MS 17:23
PROVIDERS: ADMIT Family Medicine; ATTEND Family Medicine